=== PATIENT | female | born 1990 | race Caucasian/White ===

== ENCOUNTER 2025-06-12 16:40 | Outpatient (CLI) | payer OTHER, SELFPAY ==
[2025-06-15 04:34] LABS: HPV Source Cervix
[2025-06-19 10:14] LABS: Pap Test Digital Imaging Done
== END 2025-06-12 16:41 | disposition home or self-care (01) ==
PROVIDERS: Visit Provider Physician Assistant
DX: Z12.4 Encounter for screening for malignant neoplasm of cervix (principal); Z11.51 Encounter for screening for human papillomavirus (HPV)
CPT/HCPCS: 87624; 87625; 88141; 88142; 88175

== ENCOUNTER 2025-07-31 09:20 | Outpatient (CLI) | payer OTHER, SELFPAY | END 2025-07-31 09:21 | disposition home or self-care (01) | LOC: NFLDREF 08-04 04:04 | PROVIDERS: Visit Provider Physician Assistant | DX: Z13.6 Encounter for screening for cardiovascular disorders (principal); Z13.1 Encounter for screening for diabetes mellitus; Z13.29 Encounter for screening for other suspected endocrine disorder | CPT/HCPCS: 80061; 82947; 84443 ==